=== PATIENT | female | born 1960 | race African-American/Black ===

== ENCOUNTER 2025-07-14 09:45 | Inpatient (IN) | payer OTHER ==
[2025-07-14] VITALS (7 sets, daily range): BP systolic 98–104; BP diastolic 59–68; PULSE 70–113; RESP 9–26; TEMP 99.3–99.9; O2SAT 99–100
[~2025-07-14] VITALS: Ht 162.6 cm; Wt 49.0 kg
[2025-07-14] MEDS ORDERED: ETOMIDATE 2 MG/ML 10 ML VIAL ONE (09:50)
[2025-07-14] MEDS ORDERED: ROCURONIUM BROMIDE 10 MG/ML 5 ML VIAL ONE (09:51)
[2025-07-14] MEDS ORDERED: NALOXONE HCL 1 MG/ML 2 ML SYRINGE ONE ×2 (09:52→09:53)
[2025-07-14] MEDS: NALOXONE HCL 1 MG/ML 2 ML SYRINGE IVP ONE (10:10)
[2025-07-14] MEDS: ETOMIDATE 2 MG/ML 10 ML VIAL IVP ONE (10:11)
[2025-07-14] MEDS: ROCURONIUM BROMIDE 10 MG/ML 5 ML VIAL IVP ONE (10:11)
[2025-07-14] MEDS ORDERED: LOSA-381 PO (10:15)
[2025-07-14] MEDS ORDERED: TROS20TA3 PO (10:15)
[2025-07-14 10:39] LABS: PLATELET COUNT (AUTO) 237 K/uL (150-450); RED BLOOD CELL COUNT(AUTO) 4.96 MIL/uL (4.00-5.20); RED CELL DISTRIBUTION WIDTH 15.0 % (11.5-14.5); WHITE BLOOD COUNT (AUTO) 8.7 K/uL (4.5-11.0)
[2025-07-14 10:40] LABS: RBC MORPHOLOGY COMMENT NORMAL RBC MORPH
[2025-07-14 10:48] LABS: CALCIUM, TOTAL 8.7 mg/dL (8.8-10.5); CREATININE 0.57 mg/dL (0.60-1.30); GLOMERULAR FILTR. RATE CALC > 60 mL/min (>60); GLUCOSE,RANDOM 174 mg/dL (70-110); SODIUM SERUM 143 mmol/L (136-145); UREA NITROGEN, BLOOD 18 mg/dL (7-18)
[2025-07-14 10:54] LABS: TROPONIN I-HIGH SENSITIVITY 39 ng/L (<51)
[2025-07-14 10:55] LABS: APPEARANCE,URINE CLEAR (CLEAR); GLUCOSE, URINE (UA) NEGATIVE (NEGATIVE); LEUKOCYTE ESTERASE ,URINE NEGATIVE (NEGATIVE); NITRATE,URINE NEGATIVE (NEGATIVE); OCCULT BLOOD,URINE NEGATIVE (NEGATIVE); PH,URINE DRUG SCREEN 6.0 (5.0-8.0); SPECIFIC GRAVITIY, URINE 1.021 (1.003-1.030)
[2025-07-14 10:57] LABS: ALCOHOL, URINE DRUG SCREEN NEGATIVE (NEGATIVE); AMPHET/METH SCREEN,URINE NEGATIVE (NEGATIVE); BARBITURATE SCREEN, URINE NEGATIVE (NEGATIVE); CANNABINOID SCREEN,URINE NEGATIVE (NEGATIVE); COCAINE SCREEN,URINE NEGATIVE (NEGATIVE); METHADONE SCREEN, URINE NEGATIVE (NEGATIVE)
[2025-07-14] MEDS ORDERED: FentaNYL CITRATE PF 100 MCG/2 ML VIAL ONE (11:03)
[2025-07-14 11:06] LABS: ABG BASE EXCESS -5.0 mmol/L (-2.0-3.0); ABG CARBOXYHEMOGLOBIN 0.3 % (0.5-1.5); ABG HCO3 21.0 mmol/L (21.0-28.0); ABG METHEMOGLOBIN 1.0 % (0.0-1.5); ABG OXYGEN CONTENT 15.9 mL/dL (15.0-23.0); ABG OXYGEN SATURATION 98.5 % (94.0-98.0); ABG OXYHEMOGLOBIN 97.2 % (94.0-98.0); ABG PCO2 33 mmHg (32.0-45.0); ABG PH 7.401 (7.350-7.450); ABG TOTAL HEMOGLOBIN 11.5 G/dL (12.0-16.0); FRACTIONATED INSPIRED OXYGEN 100.0 % (21-100.0); PO2, ARTERIAL BG 114.7 mmHg (83.0-108.0); SOURCE, BLOOD GAS ARTERIAL; TEMPERATURE, FAHRENHEIT, BG 98.6 FAHREN (96.0-98.6)
[2025-07-14 11:07] LABS: ALLEN TEST, BLOOD GAS POS; O2 DEVICE,BLOOD GAS VENTILATOR (ROOM AIR); PEEP,BG 5 cm H2O; SET RATE, BG 20.0 min.; SITE, BLOOD GAS RT BRACHIAL; VT, ABG 350 ml
[2025-07-14 11:07] LABS: CREATINE KINASE, TOTAL ONLY 75 U/L (26-192)
[2025-07-14] MEDS: PROPOFOL 1000 MG/ISO-OSM 100 ML IV PRN (11:12)
[2025-07-14] MEDS: FentaNYL CITRATE PF 100 MCG/2 ML VIAL IVP ONE (11:12)
[2025-07-14 11:25] LABS: LACTIC ACID 1.4 mmol/L (0.4-2.0)
[2025-07-14] MEDS: SODIUM CHLORIDE 0.9% 1,000 ML IV ONE ×2 (11:34→14:06)
[2025-07-14] MEDS ORDERED: PHENYLEPHRINE 200 MG/D5%-WATER 250 ML IV PRN (11:45)
[2025-07-14] MEDS: FentaNYL CIT 1000MCG/0.9% NACL 100 ML IV PRN (11:48)
[2025-07-14] MEDS ORDERED: KETAMINE HCL 500 MG in DEXTROSE 5%-WATER 490 ML IV PRN (12:15)
[2025-07-14] MEDS ORDERED: ONDANSETRON HCL 4 MG/2 ML VIAL IVP PRN (13:15)
[2025-07-14] MEDS ORDERED: BISACODYL 10 MG RECTAL RECTAL SUPPOSITORY PR PRN (13:15)
[2025-07-14] MEDS: CefTRIAXone 1 GM/DEXTROSE 50 ML IV SCH (14:06)
[2025-07-14] MEDS: HEPARIN SODIUM,PORCINE 5,000 UNITS/ML VIAL SQ SCH (19:59)
[2025-07-14] MEDS: DOCUSATE SODIUM 100 MG CAPSULE PO SCH (20:00)
[2025-07-14] MEDS: CHLORHEXIDINE GLUCONATE 2% TOWELETTE [2'S/6'S] TP SCH (22:07)
[2025-07-15] VITALS (15 sets, daily range): BP systolic 101–168; BP diastolic 63–95; PULSE 87–117; RESP 20–30; TEMP 97.8–99.2; O2SAT 95–100
[2025-07-15] MEDS: PROPOFOL 1000 MG/ISO-OSM 100 ML IV PRN (01:54)
[2025-07-15] MEDS: HEPARIN SODIUM,PORCINE 5,000 UNITS/ML VIAL SQ SCH (04:24)
[2025-07-15 05:58] LABS: PLATELET COUNT (AUTO) 158 K/uL (150-450); RED BLOOD CELL COUNT(AUTO) 4.22 MIL/uL (4.00-5.20); RED CELL DISTRIBUTION WIDTH 15.9 % (11.5-14.5); WHITE BLOOD COUNT (AUTO) 9.7 K/uL (4.5-11.0)
[2025-07-15 06:04] LABS: CALCIUM, TOTAL 8.1 mg/dL (8.8-10.5); CREATININE 0.32 mg/dL (0.60-1.30); GLOMERULAR FILTR. RATE CALC > 60 mL/min (>60); GLUCOSE,RANDOM 89 mg/dL (70-110); SODIUM SERUM 144 mmol/L (136-145); UREA NITROGEN, BLOOD 14 mg/dL (7-18)
[2025-07-15] MEDS: DEXTROSE 5%-0.45% SODIUM CHL 1,000 ML IV SCH (08:36)
[2025-07-15] MEDS: PANTOPRAZOLE SODIUM 40 MG/VIAL IVP SCH (08:39)
[2025-07-15] MEDS: ACETAMINOPHEN 325 MG TABLET PO PRN (13:03)
[2025-07-16] VITALS (12 sets, daily range): BP systolic 98–149; BP diastolic 54–77; PULSE 87–112; RESP 13–26; TEMP 97.8–98.7; O2SAT 98–100
[2025-07-16] MEDS: FentaNYL CIT 1000MCG/0.9% NACL 100 ML IV PRN (00:56)
[2025-07-16 06:07] LABS: PLATELET COUNT (AUTO) 179 K/uL (150-450); RED BLOOD CELL COUNT(AUTO) 4.77 MIL/uL (4.00-5.20); RED CELL DISTRIBUTION WIDTH 15.7 % (11.5-14.5); WHITE BLOOD COUNT (AUTO) 6.9 K/uL (4.5-11.0)
[2025-07-16 06:18] LABS: CALCIUM, TOTAL 8.6 mg/dL (8.8-10.5); CREATININE 0.32 mg/dL (0.60-1.30); GLOMERULAR FILTR. RATE CALC > 60 mL/min (>60); GLUCOSE,RANDOM 105 mg/dL (70-110); SODIUM SERUM 143 mmol/L (136-145); UREA NITROGEN, BLOOD 11 mg/dL (7-18)
[2025-07-16] MEDS: DEXMEDETOMIDINE 400 MCG/NS 100 ML IV PRN (08:44)
[2025-07-16] MEDS: POTASSIUM CHLORIDE 20 MEQ ER TABLET PO PRN (08:45)
[2025-07-16] MEDS: DOCUSATE SODIUM 100 MG/10 ML LIQUID UDCUP PO SCH (09:00)
[2025-07-16] MEDS ORDERED: SODIUM CHLORIDE 0.9% 250 ML IV ONE ×2 (09:28→12:37)
[2025-07-16] MEDS: POTASSIUM CHL 10 MEQ/WATER 50 ML IV PRN (09:29)
[2025-07-16 13:11] LABS: ABG BASE EXCESS 2.1 mmol/L (-2.0-3.0); ABG CARBOXYHEMOGLOBIN 0.7 % (0.5-1.5); ABG HCO3 25.3 mmol/L (21.0-28.0); ABG METHEMOGLOBIN 0.3 % (0.0-1.5); ABG OXYGEN CONTENT 15.8 mL/dL (15.0-23.0); ABG OXYGEN SATURATION 87.6 % (94.0-98.0); ABG OXYHEMOGLOBIN 86.7 % (94.0-98.0); ABG PCO2 53 mmHg (32.0-45.0); ABG PH 7.341 (7.350-7.450); ABG TOTAL HEMOGLOBIN 13.0 G/dL (12.0-16.0); FRACTIONATED INSPIRED OXYGEN 30.0 % (21-100.0); SOURCE, BLOOD GAS ARTERIAL; TEMPERATURE, FAHRENHEIT, BG 98.1 FAHREN (96.0-98.6)
[2025-07-16 13:15] LABS: ABG A-A DIFF O2 100.1 mmHg (10-20.0); ALLEN TEST, BLOOD GAS Positive; CPAP, BG 5 cm H2O; O2 DEVICE,BLOOD GAS VENTILATOR (ROOM AIR); PATIENT RATE, BG 14.0 min.; PO2, ARTERIAL BG 52.2 mmHg (83.0-108.0); PRESSURE SUPPORT, BG 8 cm H2O; SITE, BLOOD GAS RT BRACHIAL; SPONTANEOUS VT, BG 606 ml; VENT MODE, BG CPAP (ROOM AIR)
== END 2025-07-16 19:07 | disposition short-term general hospital (02) | DRG 208 ==
LOC: EMS 09:45 → EDH 12:45 → ICU 14:47
PROVIDERS: ADMIT Internal Medicine; ATTEND Internal Medicine
PROC: 5A1945Z Respiratory Ventilation, 24-96 Consecutive Hours (ICD-10-PCS; principal; 2025-07-14)
PROC: 0BH17EZ Insertion of Endotracheal Airway into Trachea, Via Natural or Artificial Opening (ICD-10-PCS; 2025-07-14)
DX: J96.00 Acute respiratory failure, unspecified whether with hypoxia or hypercapnia (principal); G93.40 Encephalopathy, unspecified; Z99.11 Dependence on respirator [ventilator] status; R65.10 Systemic inflammatory response syndrome (SIRS) of non-infectious origin without acute organ dysfunction; G35 Multiple sclerosis; I10 Essential (primary) hypertension; Z88.0 Allergy status to penicillin
CPT/HCPCS: 31500; 51702; 70450; 71045; 80048; 80307; 81003; 82140; 82550; 82805; 83605; 84132; 84484; 85025; 85610; 85730; 87040; 93005; 94002; 94003; 95816; 96361; 96372; 96374; 96375; 96376; 99291; J0360; J0696; J1644; J2312; J2370; J2470; J2704; J3010; J3480; J3490; J7030; J7050; 36415-L1; 36415-TC